=== PATIENT | male | born 1980 | race Caucasian/White ===

== ENCOUNTER 2017-03-23 21:49 | Emergency (ER) | payer BC ==
[~2017-03-23] VITALS: Ht 195.6 cm; Wt 85.9 kg
[2017-03-23 21:54] VITALS: Ht 195.6 cm; Wt 85.9 kg
[2017-03-23] MEDS ORDERED: GELATIN SPONGE 12-7MM ONE (22:04)
--- NOTE | 2017-03-23 22:36 | EMERGENCY ROOM VISIT NOTE ---
ED Visit Note First contact with patient: 21:53 CHIEF COMPLAINT: Left thumb laceration HISTORY OF PRESENT ILLNESS: This 36-year-old male patient presents to the emergency department immediately after cutting the distal aspect of the left thumb with a knife. The bleeding has not stopped. There is no weakness or numbness of the area. Tetanus shot is up-to-date. Full range of motion of the thumb. The patient rates the pain as stinging and 5/10. REVIEW OF SYSTEMS: A 6 system review of systems was completed with positives and pertinent negatives listed in the HPI. ALLERGIES: No known drug allergies MEDICATIONS: Reviewed PMH: Otherwise healthy SOCIAL HISTORY: Denies tobacco use, occasional EtOH PHYSICAL EXAM: Vital Signs: Reviewed Nurse's notes, vital signs stable. GENERAL : 36-year-old male, in no acute distress, well-developed, well-nourished. SKIN : There is a 1 cm long avulsion laceration on the distal aspect of the left thumb. It is superficial and the top layer of skin has been avulsed. There is no foreign material in the wound and it looks clean. There is active bleeding. No deep structures are seen in the base of the wound. Extension and flexion of the thumb is full and strong. Sensation to pain and light touch is intact. EMERGENCY DEPARTMENT COURSE: I examined the patient. Verbal consent was obtained to perform the procedure. The avulsion was cleaned with saline and betadine. Gelfoam was applied to the avulsion laceration and the area was dressed with a pressure dressing. The bleeding stopped. The patient tolerated the procedure well. The patient was discharged home in stable condition. DIAGNOSIS: Avulsion laceration of the left thumb DISCHARGE INSTRUCTIONS & TREATMENT: Keep dressing in place for 48 hrs, then remove. Soak foam in water until it falls off easily, then clean wound daily, cover with an antibiotic ointment and keep covered for 1 week Return for any signs of infection (increasing redness, swelling, drainage, fever). Ice and elevate for swelling and pain. Ibuprofen 600 mg and Tylenol 1000 mg every 6 hrs for pain.
[2017-03-23 22:40] VITALS: BP 106/73; PULSE 75; TEMP 36.7; O2SAT 97
== END 2017-03-23 22:49 | disposition home or self-care (01) ==
LOC: C.EDB 21:51 → C.EDA 22:49
DX: S61.012A Laceration without foreign body of left thumb without damage to nail, initial encounter (principal); W26.0XXA Contact with knife, initial encounter